=== PATIENT | female | born 1955 | race Two or more races ===

== ENCOUNTER 2022-06-23 12:30 | Emergency (ER) | payer MEDICARE, BC, OTHER ==
[~2022-06-23] VITALS: Ht 167.6 cm; Wt 83.9 kg
[2022-06-23] MEDS ORDERED: PAXLOVID 150-11 EACH PO (12:54)
== END 2022-06-23 12:54 | disposition home or self-care (01) ==
LOC: ER 12:30
DX: U07.1 COVID-19 (principal); Z88.1 Allergy status to other antibiotic agents
CPT/HCPCS: 99282